=== PATIENT | female | born 1940 | race Caucasian/White ===

== ENCOUNTER 2018-04-11 20:22 | Observation (INO) ==
--- NOTE | 2018-04-11 21:24 | Diag Imaging Result Doc PS360 ---
CHEST-PORTABLE - 04/11/2018 INDICATION: chest pain COMPARISON: 01/14/2015 FINDINGS: The lungs are normally expanded and clear. Heart size and mediastinal contours are normal. No pneumothorax or pleural effusion. Stable left pacemaker in good position. IMPRESSION: Negative exam. Electronically signed by Edwin Woo 04/11/2018 9:21 PM
[2018-04-11 22:04] LABS: BASO# 0.03 X1000 (0.0-0.2); BASO% 0.5 % (0.0-0.8); EOS# 0.23 X1000 (0.0-0.7); EOS% 3.5 % (0.0-10.0); HEMOGLOBIN 13.4 g/dL (12.0-16.0); LYMPH# 1.36 X1000 (1.2-3.4); LYMPH% 20.8 % (20.5-51.1); MCH 30.5 PG (27-31); MCHC 33.5 g/dL (33-37); MCV 91.1 FL (81-99); MONO# 0.59 X1000 (0.11-0.59); MPV 10.9 FL (7.4-10.4); NEUT# 4.34 X1000 (1.4-6.5); NEUT% 66.2 % (42.2-75.2); PLT 181 X1000 (130-400); RBC 4.39 XMIL (4.2-5.4); RDW 12.8 % (11.5-14.5); WBC 6.55 X1000 (4.8-10.8)
[2018-04-11 22:07] LABS: INR 0.97; PROTIME 13.7 Seconds (11.0-16.0)
[2018-04-11 22:08] LABS: PTT 30.5 Seconds (22.3-41.8)
[2018-04-11] MEDS ORDERED: CARDIZEM IV ONE (22:20)
[2018-04-11 22:23] LABS: AGAP 16; ALB/GLOB RATIO 1.6; ALBUMIN 4.2 g/dL (3.5-5.0); ALKALINE PHOSPHATASE 66 U/L (32-104); BUN 15 mg/dL (8-22); CALCIUM 9.6 mg/dL (8.8-10.2); CHLORIDE 99 mmol/L (98-107); CK PROFILE 37 U/L (24-173); COSMO 287; CREATININE 0.9 mg/dL (0.5-0.9); ESTIMATED GFR > 60; GLUCOSE 255 mg/dL (70-104); GOT 20 U/L (10-30); GPT 21 U/L (10-36); MAGNESIUM 1.5 mg/dL (1.5-2.7); SODIUM 139 mmol/L (136-145); TCO2 24 mmol/L (25-35); TOTAL BILIRUBIN 0.99 mg/dL (0.20-1.00); TOTAL PROTEIN 6.8 g/dL (6.3-8.3)
[2018-04-11 22:31] LABS: URINE SOURCE CLEAN CATCH
[2018-04-11 22:49] LABS: BILIRUBIN URINE NEGATIVE (NEGATIVE); BLOOD URINE NEGATIVE (NEGATIVE); COLOR STRAW; GLUCOSE URINE 500 mg/dL (NEGATIVE); KETONE URINE TRACE mg/dL (NEGATIVE); LEUKOCYTES URINE NEGATIVE (NEGATIVE); NITRITE URINE NEGATIVE (NEGATIVE); PROTEIN URINE TRACE mg/dL (NEGATIVE); SP GRAVITY URINE < 1.001; TURBIDITY URINE CLEAR (CLEAR); UR EPITHELIAL CELLS <10 /HPF (<10); URINE BACTERIA NEGATIVE /HPF; URINE RBC <10 /HPF (<10); URINE WBC <10 /HPF (<10); UROBILINOGEN URINE NORMAL (NORMAL)
[2018-04-11] MEDS ORDERED: ASPIRIN PO ONE (23:47)
--- NOTE | 2018-04-12 00:27 | PROVIDER DOCUMENTATION ---
This chart was entered by Melo Wu Scribe, acting as scribe for Paulino Gallardo MD. HPI-Chest Pain - General Chief Complaint: Palpitations Stated Complaint: CHEST PAIN / RACING HEARTRATE / SOB Time Seen by Provider: 04/11/18 20:41 Source: patient Allergies/Adverse Reactions: Patient Allergies Allergy/AdvReac Type Severity Reaction Status Date / Time latex Allergy RASH Verified 04/11/18 23:25 Home Medications: Home Medication List Medication Instructions Recorded Confirmed Last Taken Type Rivaroxaban [Xarelto] 20 mg PO HS 04/21/14 04/11/18 01/13/15 22:00 History Glipizide/Metformin HCl 2 each PO BID 01/14/15 04/11/18 01/21/15 11:30 History [Glipizide-Metformin 5-500 mg] Gabapentin 2 cap PO TID 06/26/17 04/11/18 Unknown History Metoprolol Succinate [Toprol Xl] 1 tab PO DAILY 06/26/17 04/11/18 Unknown History Amlodipine Besylate/Benazepril 1 each PO DAILY 04/11/18 04/11/18 Unknown History [Lotrel 10/20 mg Capsule] - History of Present Illness-CP Nature of Presenting Problem: Pt is a 78 y/o F presents to the ED with chest pain that began at 19:30 after walking up a ramp. Pt says she has had spells like this now for about 1 week. Today the pain was a 10 out of 10. Pt reports taking a nitro at home. Denies taking aspirin. She reports a pain is about an 8 now. Pt report hx of A-Fib. Location: reports: substernal Chest Pain Radiation: reports: arms, neck Quality of Pain: reports: pressure Severity in ED: severe Onset/Duration: this evening Timing: still present, improving Context/Activities at Onset: reports: none Modifying Factors: improves with: nothing Nitro Today/Relief: 0.4 mg x 1, provided at home, mild relief Aspirin Treatment Today: no aspirin today Similar Symptoms Previously?: Yes Recently Seen Here or By Another Healthcare Provider: No Review of Systems - Adult - REVIEW OF SYSTEMS - ADULT Constitutional: denies: chills, fever Eyes: reports: no symptoms reported Ears, Nose, Mouth & Throat: reports: no symptoms reported Cardiovascular: reports: chest pain, palpitations. denies: edema, syncope Respiratory: denies: cough, shortness of breath, wheezing Gastrointestinal: denies: abdominal pain, nausea, vomiting Genitourinary: reports: no symptoms reported Musculoskeletal: denies: back pain, neck pain Integumentary: reports: no symptoms reported Neurological: denies: dizziness/vertigo, headache/migraines Psychiatric: reports: no symptoms reported Endocrine: reports: no symptoms reported Hematologic/Lymphatic: reports: no symptoms reported Allergic/Immunologic: reports: no symptoms reported All Other Systems: Reviewed and Negative Past History - Adult - PAST MEDICAL HISTORY-ADULT Review of Records: reports: Old Records Reviewed, Nursing Assessment Review, Medications Reviewed Cardiovascular: reports: HTN, pacemaker Gastrointestinal: reports: GERD Endocrine/Immune: reports: Diabetes - PRIOR SURGERIES/PROCEDURES Surgical/Procedure History: reports: cholecystectomy, other (tongue cancer) - IMMUNIZATION STATUS Childhood Immunizations: See Nurse Assessment Flu Vaccine: See Nurse Assessment - SOCIAL HISTORY Smoking: non-smoker Substance Use: none/never Living Situation: family Physical Exam-General - PHYSICAL EXAM-ADULT Initial Vital Signs Reviewed: Yes - CONSTITUTIONAL General Appearance: appears well, alert, no apparent distress - EYES Eyes: PERRL/EOMI, pink conjunctivae - HEAD, EARS, NOSE, MOUTH & THROAT HENMT: moist mucous membranes, pharynx normal - NECK Neck: non-tender, full range of motion, supple, normal inspection - RESPIRATORY Respiratory: lungs clear, normal breath sounds, no pleuratic chest pain, no respiratory distress, no accessory muscle use - CARDIOVASCULAR Cardiovascular: normal peripheral pulses, irregularly irregular - GASTROINTESTINAL (ABDOMEN) Abdominal Exam: normal bowel sounds, non tender, soft - MUSCULOSKELETAL Back Exam: normal inspection, no CVA tenderness, no vertebral tenderness Extremity: normal range of motion, non-tender, normal gait, normal inspection, pedal edema (2+ right lower extremity and trace edema left lower extremity) - SKIN Integumentary: normal color, normal turgor, warm/dry - NEUROLOGIC Neurologic: grossly normal, no motor/sensory deficits - PSYCHIATRIC Psych/Mental Status: normal mood/affect, normal thought content, normal thought process, oriented x 3 - HEART Score HEART Score: History: Slightly Suspicious HEART Score: ECG: Non-Specific Repolarization Disturbance/LBBB/PM HEART Score: Age: > or = 65 Years HEART Score: Risk Factors for Atherosclerotic Disease: > or = 3 Risk Factors or History of Atherosclerotic Disease HEART Score: Troponin: < or = Normal Limit Total HEART Score:: 5 Progress - PLAN OF CARE/RESULTS Progress/Plan/Lab Results: Vital Signs - 8 hr 04/11/18 20:34 04/11/18 20:45 04/11/18 20:48 Temperature 97.4 F L Pulse Rate 91 H 87 81 Respiratory Rate 18 18 23 Blood Pressure 205/85 200/108 172/96 O2 Sat by Pulse Oximetry 97 95 95 04/11/18 20:50 04/11/18 21:00 04/11/18 21:02 Temperature Pulse Rate 86 82 84 Respiratory Rate 23 27 H 24 Blood Pressure 163/80 O2 Sat by Pulse Oximetry 95 95 93 L 04/11/18 21:10 04/11/18 21:17 04/11/18 21:20 Temperature Pulse Rate 91 H 78 80 Respiratory Rate 20 24 24 Blood Pressure 164/83 O2 Sat by Pulse Oximetry 94 L 94 L 94 L 04/11/18 21:30 04/11/18 21:32 04/11/18 21:40 Temperature Pulse Rate 80 78 76 Respiratory Rate 30 H 19 27 H Blood Pressure 147/96 O2 Sat by Pulse Oximetry 94 L 94 L 96 04/11/18 21:47 04/11/18 21:50 04/11/18 22:00 Temperature Pulse Rate 83 76 78 Respiratory Rate 25 H 18 20 Blood Pressure 152/79 O2 Sat by Pulse Oximetry 95 93 L 95 04/11/18 22:14 04/11/18 22:16 04/11/18 22:18 Temperature Pulse Rate 94 H 84 81 Respiratory Rate 31 H 23 21 Blood Pressure 220/121 208/86 O2 Sat by Pulse Oximetry 91 L 95 94 L 04/11/18 22:19 04/11/18 22:20 04/11/18 22:30 Temperature Pulse Rate 84 78 77 Respiratory Rate 17 22 21 Blood Pressure 179/86 O2 Sat by Pulse Oximetry 96 95 93 L 04/11/18 22:33 04/11/18 22:40 04/11/18 22:47 Temperature Pulse Rate 83 78 80 Respiratory Rate 21 19 20 Blood Pressure 164/74 173/85 O2 Sat by Pulse Oximetry 92 L 94 L 93 L 04/11/18 22:50 04/11/18 23:00 03/04/19 23:03 Temperature Pulse Rate 70 75 76 Respiratory Rate 19 18 17 Blood Pressure 174/79 O2 Sat by Pulse Oximetry 94 L 93 L 91 L 04/11/18 23:10 04/11/18 23:20 04/11/18 23:25 Temperature Pulse Rate 71 81 74 Respiratory Rate 15 22 20 Blood Pressure 174/79 O2 Sat by Pulse Oximetry 95 94 L 95 04/11/18 23:30 04/11/18 23:40 04/11/18 23:48 Temperature Pulse Rate 75 80 79 Respiratory Rate 15 Blood Pressure 148/65 O2 Sat by Pulse Oximetry 96 95 93 L 04/11/18 23:50 04/12/18 00:00 04/12/18 00:03 Temperature Pulse Rate 81 71 81 Respiratory Rate Blood Pressure 155/72 O2 Sat by Pulse Oximetry 93 L 94 L 96 04/12/18 00:10 04/12/18 00:18 04/12/18 00:20 Temperature Pulse Rate 80 76 74 Respiratory Rate 20 Blood Pressure 185/94 O2 Sat by Pulse Oximetry 93 L 94 L 94 L Laboratory Results - last 24 hr 04/11/18 04/11/18 04/11/18 21:09 21:09 21:09 WBC 6.55 RBC 4.39 Hgb 13.4 Hct 40.0 MCV 91.1 MCH 30.5 MCHC 33.5 RDW Std Deviation 12.8 Plt Count 181 MPV 10.9 H Neut % (Auto) 66.2 Lymph % (Auto) 20.8 [place] % (Auto) 9.0 Eos % (Auto) 3.5 Baso % (Auto) 0.5 Neut # (Auto) 4.34 Lymph # (Auto) 1.36 [place] # (Auto) 0.59 Eos # (Auto) 0.23 Baso # (Auto) 0.03 PT INR PTT (Actin FS) Sodium 139 Potassium 4.0 Chloride 99 Carbon Dioxide 24 L Anion Gap 16 BUN 15 Creatinine 0.9 Estimated GFR/1.73 m2 > 60 BUN/Creatinine Ratio 17 Glucose 255 H Calculated Osmolality 287 Calcium 9.6 Magnesium 1.5 Total Bilirubin 0.99 AST 20 ALT 21 Alkaline Phosphatase 66 Creatine Kinase 37 Troponin T [id number]-Rufxswqgfln Pept 293 Total Protein 6.8 Albumin 4.2 Globulin 2.6 Albumin/Globulin Ratio 1.6 Urine Source Urine Color Urine Turbidity Urine pH Ur Specific [place] Urine Protein Ur Glucose (Stick) Ur Ketones (Stick) Urine Blood Urine Nitrite Urine Bilirubin Urobilinogen Dipstick Urine Leukocytes Urine WBC (Auto) Urine RBC (Auto) U Epithel Cells (Auto) Urine Bacteria (Auto) 04/11/18 04/11/18 04/11/18 21:09 21:09 22:15 WBC RBC Hgb Hct MCV MCH MCHC RDW Std Deviation Plt Count MPV Neut % (Auto) Lymph % (Auto) [place] % (Auto) Eos % (Auto) Baso % (Auto) Neut # (Auto) Lymph # (Auto) [place] # (Auto) Eos # (Auto) Baso # (Auto) PT 13.7 INR 0.97 PTT (Actin FS) 30.5 Sodium Potassium Chloride Carbon Dioxide Anion Gap BUN Creatinine Estimated GFR/1.73 m2 BUN/Creatinine Ratio Glucose Calculated Osmolality Calcium Magnesium Total Bilirubin AST ALT Alkaline Phosphatase Creatine Kinase Troponin T < 0.010 Hol-H-Uhekyuuhyol Pept Total Protein Albumin Globulin Albumin/Globulin Ratio Urine Source CLEAN CATCH Urine Color STRAW Urine Turbidity CLEAR Urine pH 6.0 Ur Specific [place] < 1.001 Urine Protein TRACE A Ur Glucose (Stick) 500 A Ur Ketones (Stick) TRACE A Urine Blood NEGATIVE Urine Nitrite NEGATIVE Urine Bilirubin NEGATIVE Urobilinogen Dipstick NORMAL Urine Leukocytes NEGATIVE Urine WBC (Auto) <10 Urine RBC (Auto) <10 U Epithel Cells (Auto) <10 Urine Bacteria (Auto) NEGATIVE 04/11/18 04/11/18 23:22 23:22 WBC RBC Hgb Hct MCV MCH MCHC RDW Std Deviation Plt Count MPV Neut % (Auto) Lymph % (Auto) [place] % (Auto) Eos % (Auto) Baso % (Auto) Neut # (Auto) Lymph # (Auto) [place] # (Auto) Eos # (Auto) Baso # (Auto) PT INR PTT (Actin FS) Sodium Potassium Chloride Carbon Dioxide Anion Gap BUN Creatinine Estimated GFR/1.73 m2 BUN/Creatinine Ratio Glucose Calculated Osmolality Calcium Magnesium Total Bilirubin AST ALT Alkaline Phosphatase Creatine Kinase 31 Troponin T < 0.010 Fze-Z-Ngppzldlrjm Pept Total Protein Albumin Globulin Albumin/Globulin Ratio Urine Source Urine Color Urine Turbidity Urine pH Ur Specific [place] Urine Protein Ur Glucose (Stick) Ur Ketones (Stick) Urine Blood Urine Nitrite Urine Bilirubin Urobilinogen Dipstick Urine Leukocytes Urine WBC (Auto) Urine RBC (Auto) U Epithel Cells (Auto) Urine Bacteria (Auto) Orders Category Date Time Status CHEST-PORTABLE [RAD] Stat Exams 04/11/18 20:55 Completed CBC WITH ELECTRONIC DIFF [HEME] Stat Lab 04/11/18 21:09 Completed CK PROFILE [SP CHEM] Stat Lab 04/11/18 21:09 Completed CK PROFILE [SP CHEM] Stat Lab 04/11/18 23:22 Completed COMPREHENSIVE METABOLIC PANEL [CHEM] Stat Lab 04/11/18 21:09 Completed MAGNESIUM [CHEM] Stat Lab 04/11/18 21:09 Completed PRO B-NATRIURETIC PEPTIDE Stat Lab 04/11/18 21:09 Completed PT [PROTIME WITH INR] [COAG] Stat Lab 04/11/18 21:09 Completed PTT [COAG] Stat Lab 04/11/18 21:09 Completed TROPONIN T Stat Lab 04/11/18 21:09 Completed TROPONIN T Stat Lab 04/11/18 23:22 Completed URINALYSIS W/POSS RFLX CULT [URINALYSIS] Stat Lab 04/11/18 22:15 Completed Aspirin Med 04/11/18 23:47 Discontinued 325 mg PO NOW ONE Diltiazem [Cardizem] Med 04/11/18 22:20 Discontinued 10 mg IV NOW ONE EKG [EKG] Stat Ther 04/11/18 20:37 Ordered Result Diagrams: 04/11/18 21:09 04/11/18 21:09 - REASSESSMENT Reassessment #1 Time Reassessed: 23:25 Status: other (patient has had moderate chest pain when walking to bathroom after initial improvement) - EKG 1 Time of EKG reading by physician:: 20:31 EKG Read and Signed by:: Paulino Gallardo EKG Interpretation (*Must complete 3 of following elements*): Abnormal Rate: 107 Rhythm: A-Fib with RVR with occasional ventricular pace complexes QRS: other (low voltage QRS) Comments: Septal infarct, age undetermined 2 Time of EKG reading by physician:: 23:18 EKG Read and Signed by:: Paulino Gallardo EKG Interpretation (*Must complete 3 of following elements*): Abnormal Rate: 77 Rhythm: a-fIV [place]: left Comments: SEPTAL INFARCT, ST AND tWAVE ABNORMALITY - XRAY 1 XRAY Study: Chest Impression: Normal (HEST-PORTABLE - 04/11/2018 INDICATION: chest pain COMPARISON: 01/14/2015 FINDINGS: The lungs are normally expanded and clear. Heart size and mediastinal contours are normal. No pneumothorax or pleural effusion. Stable left pacemaker in good position. IMPRESSION: Negative exam. Electronically signed by Edwin Woo 04/11/2018 9:21 PM 04/11/182120 Interpreting Physician: Edwin Woo MD Dictated Date/Time: 04/11/182119 cc: Paulino Gallardo MD; Champ Taylor MD) - CONSULTS/PCP/HOSPITALIST Notification #1 *Consult/PCP/Hospitalist*: Dr. Christy Time Discussed: 23:56 Consult Disposition: Admit Departure - Departure Date of Disposition Decision: 04/11/18 Time of Disposition Decision: 23:57 DIAGNOSIS: Atrial fibrillation with RVR Chest pain Qualifiers: Chest pain type: unspecified Qualified Code(s): R07.9 - Chest pain, unspecified Disposition: ADMITTED INPATIENT 09 Certified Medical Emergency: Emergent Condition: Fair - Critical Care Note This patient required my direct & personal management of CC.: No Attestation - Physician/ LYN Attestation The physician spent face to face time with patient:: Yes Advanced Practice Provider documentation review:: Supervising physician onsite and consulted in the evaluation and care of this patient. The physician did have a face to face encounter with the patient. This chart was documented by the indicated scribe, (Melo Wu Scribe) and accurately reflects the services I performed and decisions made by me, Paulino Gallardo MD, as attested by the provider's signature.
[2018-04-12] MEDS ORDERED: MAGNESIUM SULFATE 1 GM/D5W 1 GM/100 ML IVPB IV ONE (01:07)
[2018-04-12] MEDS ORDERED: ZOFRAN IV PRN (02:01)
[2018-04-12] MEDS ORDERED: MORPHINE IV PRN (02:01)
[2018-04-12] MEDS ORDERED: TYLENOL PO PRN (02:01)
[2018-04-12] MEDS: NITROGLYCERIN TOP SCH ×4 (05:08→20:59)
[2018-04-12] MEDS: HUMALOG SUBQ SCH ×4 (06:33→20:53)
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
--- NOTE | 2018-04-12 07:24 | EKG Report ---
Test Performed on : 04/11/2018 8:31:19 PM Test Reason : CP Blood Pressure : / mmHG Vent. Rate : 107 BPM Atrial Rate : 115 BPM P-R Int : 000 ms QRS Dur : 088 ms QT Int : 344 ms P-R-T Axes : 000 -29 133 degrees QTc Int : 459 ms Atrial fibrillation. with rapid ventricular response. with occasional ventricular-paced complexes Low voltage QRS Septal infarct , age undetermined Abnormal ECG No previous ECGs available Unconfirmed Result
--- NOTE | 2018-04-12 07:49 | EKG Report ---
Test Performed on : 04/11/2018 11:18:12 PM Test Reason : palpitations/chest pain Blood Pressure : / mmHG Vent. Rate : 077 BPM Atrial Rate : 241 BPM P-R Int : 000 ms QRS Dur : 090 ms QT Int : 418 ms P-R-T Axes : 000 -49 -65 degrees QTc Int : 473 ms Atrial fibrillation. Left axis deviation Septal infarct , age undetermined ST & T wave abnormality, consider lateral ischemia Abnormal ECG When compared with ECG of 11-APR-2018 20:31, (Unconfirmed) Atrial fibrillation. has replaced Electronic ventricular pacemaker Unconfirmed Result
[2018-04-12] MEDS ORDERED: LEXISCAN ONE (08:02)
[2018-04-12 08:06] LABS: CHOLESTEROL 165 mg/dL (0-200); HDL 40 mg/dL (45-65); LDL 104 mg/dL; TRIGLYCERIDES 103 mg/dL (35-135); VLDL 21 mg/dL
[2018-04-12 08:23] LABS: HEMOGLOBIN A1C 6.3 % (4.8-6.0)
[2018-04-12] MEDS ORDERED: LOTREL 5/10 MG PO SCH (09:00)
[2018-04-12] MEDS ORDERED: ASPIRIN PO SCH (09:00)
[2018-04-12] MEDS ORDERED: TOPROL XL PO SCH (09:00)
[2018-04-12] MEDS: PRILOSEC PO SCH (10:04)
[2018-04-12] MEDS: LIPITOR PO SCH (10:04)
[2018-04-12] MEDS: NEURONTIN PO SCH ×3 (10:05→20:54)
--- NOTE | 2018-04-12 10:54 | EKG Report ---
Test Performed on : 04/12/2018 10:12:50 AM Test Reason : CP Blood Pressure : / mmHG Vent. Rate : 071 BPM Atrial Rate : 061 BPM P-R Int : 000 ms QRS Dur : 096 ms QT Int : 464 ms P-R-T Axes : 000 -46 -77 degrees QTc Int : 504 ms Atrial fibrillation. with occasional ventricular-paced complexes Left axis deviation ST & T wave abnormality, consider inferolateral ischemia Prolonged QT Abnormal ECG When compared with ECG of 11-APR-2018 23:18, (Unconfirmed) Electronic ventricular pacemaker has replaced Atrial fibrillation. Unconfirmed Result
--- NOTE | 2018-04-12 11:38 | CONSULTATION ---
DATE OF CONSULTATION: 04/12/2018 REASON FOR CONSULTATION: Cardiology was consulted for chest pain. HISTORY OF PRESENT ILLNESS: Ms Romero is a 78-year-old lady with a history of atrial fibrillation, permanent pacemaker - [employer] device, who presented to the emergency room with chest pains she describes as midsternal with radiation to the neck, shoulders and to the back, continued for several hours and she was concerned, came to the emergency room. Denies any nausea, vomiting. Patient also has associated shortness of breath. She again had some recurrence of chest pain earlier since admission, again retrosternal, mild in character. At the time of my examination, patient complains of headache but no chest pain. This morning, she had mild chest discomfort, 3/10. She was set up for a stress test, that was canceled. REVIEW OF SYSTEMS: A 14-point review of systems was done. Gastrointestinal System: There is no history of nausea, vomiting, diarrhea. There is no history of hematemesis or melena. Central nervous system: No focal weakness to suggest a CVA, TIA. Genitourinary: There is no dysuria or hematuria. PAST MEDICAL HISTORY: 1. Atrial fibrillation, Medtronic pacemaker implanted in the past. 2. Hypertension. 3. Diabetes. 4. History of squamous cell carcinoma. 5. Venous insufficiency. 6. Cholecystectomy. 7. Right knee surgery. 8. Carcinoma of tongue removed. 9. Shoulder surgery. 10. Ablation for atrial fibrillation. 11. Cataract surgery. HOME MEDICATIONS: Include: 1. Lotrel 10/. 2. Gabapentin. 3. Glipizide/metformin 5/500 b.i.d. 4. Toprol 25. 5. Xarelto 20 at bedtime. PHYSICAL EXAMINATION: Vital Signs: Blood pressure was 150/70. Cardiovascular System: Normal jugular venous pressure. There is no thyromegaly. There is no carotid bruit. First and second heart sounds were heard. There is no S3, gallop. Respiratory: System normal air entry. There is no crepitations or rhonchi. Abdomen: Soft, nontender. There was no guarding or rigidity. Bowel sounds were heard. Central nervous system: Alert and oriented, moving all 4 extremities. Extremities: Examination of extremities revealed no pedal edema. HEENT: Atraumatic, normocephalic. Pupils were equal and reacting to light. LABORATORY DATA: Cardiac enzymes were negative. Sodium 139, potassium 4.0, BUN 15, creatinine 0.9. platelet count of 181,000. Magnesium 1.5. ProBNP 293. ASSESSMENT AND PLAN: 1. Ms Rose Romero is a 78-year-old lady with history of hypertension, diabetes, atrial fibrillation, permanent pacemaker implantation in the past, comes in with complaints of typical anginal symptoms. she has unstable angina. She was set up for a stress test today that has been cancelled, resting scans revealed inferior , inferoapical, inferoseptal defect. We will plan for invasive coronary angiography. I have discussed with the patient the risks, benefits, alternatives for the plan. We will set up for a left heart catheterization tomorrow. She has taken her Xarelto last night, we need to hold it for at least 24 to 48 hours. 2. Electrocardiogram revealed atrial fibrillation. 3. Magnesium was 1.5. We will repeat the same. 4. As far as medications are concerned, we will increase her Toprol to 50 b.i.d. We will discontinue the Lotrel 11/27, leave her on the TRISTEN inhibitors. Discontinue the amlodipine. 5. Start her on aspirin 81 mg a day. 6. Diabetes. Continue with the glipizide/metformin. 7. Chest x-ray was unremarkable. Thank you for the consult. We will follow hospital course. cc: MD COOPER Barrios
--- NOTE | 2018-04-12 13:45 | PROGRESS NOTE ---
DATE: 04/12/2018 SUBJECTIVE: This morning Ms. Romero referred to be doing fairly okay. Still has this pressure sensation in the chest, but she refers that the chest pain itself has improved some. OBJECTIVE: Vital Signs: Blood pressure 127/74, pulse is 75, respirations 18, temperature is 97.5 degrees. The patient is saturating 100% on room air. General: Ms. Romero is a 78-year-old female, morbidly obese with a BMI of 34.9. She is in bed. No seemingly distress. Mucosa is pink and moist. Anicteric. Acyanotic. Neck: Supple. Chest: Clear to auscultation. No crepitations. No rhonchi. Cardiovascular: Regular rate and rhythm. No murmurs. Abdomen: Soft, distended, but nontender. Bowel sounds present. Extremities: No pedal edema. Central Nervous System: The patient is awake, alert, oriented. There is no focal neurological deficit. DIAGNOSTIC DATA: The laboratory data has been reviewed. Troponins so far have all been negative. EKG on presentation did show a atrial fibrillation, which is rate controlled; left axis deviation; and poor R-wave progression, which would be suggestive of an anterolateral myocardial disease. This patient did have a resting stress test done, which I am told is remarkably abnormal, and because of her history and risk factors, there is an order for a left heart catheterization, hopefully tomorrow. ASSESSMENT AND PLAN: 1. Chest pain with abnormal stress test, as well as EKG, all concerning for coronary artery disease. The patient is pending a left heart catheterization tomorrow. 2. History of atrial fibrillation, currently rate controlled. 3. Diabetes mellitus type 2. 4. Hypertension, controlled. 5. Obesity with body mass index of 34.9. Weight loss has been advised. cc: Eleuterio Chavez MD
--- NOTE | 2018-04-12 14:11 | ECHO REPORT ---
ORDER DATE: 04/12/2018 INDICATION: Pacemaker, chest pain, palpitations. FINDINGS: 1. The right atrium appears normal in size at 3.3 cm. Linear echodensity consistent with device leads is noted in the right heart chambers. 2. Mild tricuspid regurgitation. RV systolic pressure of 37. 3. Normal RV size and systolic function. 4. Mild pulmonic insufficiency. 5. Mild left atrial enlargement with a dimension of 4.8 cm. 6. No mitral valve prolapse. Mild mitral regurgitation. 7. Normal LV size, end-diastolic dimension of 5.4 cm. I believe there is no evidence of left ventricular hypertrophy. The endocardial border thicknesses are difficult to estimate but appear to be around 1 cm for the septum. 8. There is normal LV systolic function. The estimated EF is 60-65% with normal wall motion. 9. Aortic valve opens well. There is mild insufficiency. No stenosis. 10. Aorta appears normal in visualized segments. 11. No pericardial effusion seen. cc: MD Ayana Reese MD
--- NOTE | 2018-04-12 15:17 | Diag Imaging Result Document ---
PROCEDURE NAME: MYOCARDIAL PERFU SCAN, REST - 04/12/2018 INDICATION FOR THIS PROCEDURE: Chest pain. PROCEDURE PERFORMED: Resting myocardial perfusion. PROCEDURE IN DETAIL: Ms. Cabello was brought to the nuclear laboratory in fasting state. Informed consent was obtained. She had a resting study performed with injection of 14.8 mCi of technetium- 99m sestamibi with the usual imaging protocol utilized. FINDINGS: 1. There is no clear evidence of abnormal extracardiac uptake. 2. Rest perfusion imaging seems to demonstrate a mild intensity defect located in a relatively narrow portion in the basal anterior, mid anterior, and apical anterior. There is another defect which is large in size and mild to moderate intensity involving the basal inferior, mid inferior, apical inferior, with some involvement of the inferior septal and inferolateral regions. 3. No gating was performed on this study. 4. Again, these are rest only images. cc: MD Ayana Reese MD
[2018-04-12] MEDS: TOPROL XL PO SCH (20:54)
[2018-04-12] MEDS ORDERED: XARELTO PO SCH (21:00)
[2018-04-13] MEDS: NITROGLYCERIN TOP SCH ×4 (01:48→16:26)
[2018-04-13 05:45] LABS: HEMATOCRIT 38.4 % (37.0-47.0); HEMOGLOBIN 12.8 g/dL (12.0-16.0); MCH 30.7 PG (27-31); MCHC 33.3 g/dL (33-37); MCV 92.1 FL (81-99); MPV 10.9 FL (7.4-10.4); RBC 4.17 XMIL (4.2-5.4); RDW 12.8 % (11.5-14.5); WBC 6.58 X1000 (4.8-10.8)
[2018-04-13] MEDS: HUMALOG SUBQ SCH ×3 (05:59→16:26)
[2018-04-13] MEDS: PRILOSEC PO SCH (06:00)
[2018-04-13 06:02] LABS: AGAP 9; BUN 17 mg/dL (8-22); CALCIUM 9.2 mg/dL (8.8-10.2); CHLORIDE 101 mmol/L (98-107); COSMO 281; CREATININE 0.9 mg/dL (0.5-0.9); ESTIMATED GFR > 60; GLUCOSE 193 mg/dL (70-104); MAGNESIUM 1.8 mg/dL (1.5-2.7); POTASSIUM 4.2 mmol/L (3.5-5.1); SODIUM 137 mmol/L (136-145); TCO2 27 mmol/L (25-35)
[2018-04-13 06:25] LABS: INR 1.11; PROTIME 15.2 Seconds (11.0-16.0)
[2018-04-13] MEDS: NEURONTIN PO SCH ×2 (08:44→16:25)
[2018-04-13] MEDS: TOPROL XL PO SCH (08:44)
[2018-04-13] MEDS: LIPITOR PO SCH (08:44)
[2018-04-13] MEDS ORDERED: PRINIVIL PO SCH (09:00)
[2018-04-13] MEDS ORDERED: ASPIRIN PO SCH (09:00)
[2018-04-13] MEDS ORDERED: HEPARIN 1000 UNITS/NS 2,000 UNIT/1,000 ML IV.SOLN ONE (10:58)
[2018-04-13] MEDS ORDERED: MORPHINE ONE (12:03)
[2018-04-13] MEDS ORDERED: VERSED ONE (12:03)
[2018-04-13] MEDS ORDERED: NS 1,000 ML ONE (12:03)
[2018-04-13] MEDS ORDERED: CLAVE TWINSITE 32 IN 11959 ONE (12:03)
[2018-04-13] MEDS ORDERED: ANESTHESIA PB SET 88 IN 5742 ONE (12:03)
[2018-04-13] MEDS ORDERED: APRESOLINE ONE (13:03)
[2018-04-13] MEDS ORDERED: LABETALOL IV ONE (13:15)
[2018-04-13 16:17] VITALS: BP 130/61
[2018-04-13] MEDS ORDERED: NEURONTIN PO SCH (21:00)
[2018-04-13] MEDS ORDERED: TOPROL XL PO SCH (21:00)
[2018-04-13] MEDS ORDERED: LIPITOR PO SCH (21:00)
[2018-04-14] MEDS ORDERED: PRILOSEC PO SCH (06:00)
[2018-04-14] MEDS ORDERED: PRINIVIL PO SCH (06:00)
[2018-04-14] MEDS ORDERED: ASPIRIN PO SCH (06:00)
--- NOTE | 2018-04-14 06:47 | DISCHARGE SUMMARY ---
ADMISSION DATE: 04/12/2018 DISCHARGE DATE: 04/13/2018 DISPOSITION: [facility] [place]. CONSULTATION DURING THIS ADMISSION: Cardiology was consulted. Patient was seen by Dr. Perry. INVASIVE PROCEDURES DONE DURING THIS ADMISSION: A left heart catheterization was done. At the time of the discharge official report is still not out. However, a preliminary report did show 3 vessel disease. The patient was being transferred for cardiothoracic evaluation. OTHER IMAGING STUDIES: A myocardial perfusion scan was done which showed some reversible ischemic changes on the head. Echocardiogram revealed ejection fraction of about 60% to 65%. DIAGNOSES AT THE TIME OF ADMISSION: 1. Chest pain syndrome etiology unclear, likely ischemic. 2. Atrial fibrillation rate controlled. 3. Diabetes mellitus. 4. Hypertension. DISCHARGE DIAGNOSES: 1. Chest pain secondary to coronary artery disease with left heart catheterization revealing 3 vessel disease. The patient is being transferred to [facility] for higher level of care. 2. History of atrial fibrillation currently rate controlled. 3. Diabetes mellitus type 2. 4. Hypertension. 5. Obesity with BMI of 34.2. PRESENTING COMPLAINT: One week history of chest pain. HISTORY OF PRESENTING COMPLAINT: Ms. Romero is a 78-year-old female with a history of atrial fibrillation, hypertension, diabetes. She is status post pacemaker for what appears to be sick sinus syndrome, who presented to the emergency department because of 1-week history of on and off chest pain. It appears this has been going on and is progressively getting worse. On the day of presentation, patient had a similar episode of retrosternal chest pain with radiation to the left arm associated with some diaphoresis. Upon presentation, patient was evaluated. Initial vitals revealed a blood pressure was 205/85, pulse of 91, respiration was 18. EKG did show atrial fibrillation with RVR. The patient's troponins were within normal range but because of her cardiac risk factors, she was admitted for cardiac risk stratification. HOSPITAL COURSE: Ms. Cabello was admitted to the medical floor under tele monitoring. Blood pressure was controlled. All her other chronic comorbidities where adequately addressed. A stress test as well as echocardiogram were done. The stress test was remarkably positive. It was therefore deemed necessary to do a left heart catheterization which was done by Dr. Sales and it appears to have revealed 3 vessel disease. Cardiology made arrangements for patient to be transferred to [facility] for higher level of care. At the time of discharge, Ms. Romero's vitals were stable. Blood pressure was 130/61, pulse is 83, respiration is 17, temperature 98.2 degrees. I have personally discussed the preliminary finding with the family members at the bedside of Ms. Romero early on today and they were all in agreement for the transfer to take place. Time spent for discharge was 36 minute. cc: MD Champ Thompson MD Ashish K. Basu, MD
== END 2018-04-13 19:30 | disposition short-term general hospital (02) ==
LOC: ED 20:22 → 3N 20:22 → SUATTDRO 04-12 01:34 → 3S 04-12 17:52
PROVIDERS: ATTEND Internal Medicine
CPT/HCPCS: 71010; 71045; 78451; 80048; 80053; 80061; 81001; 82550; 82948; 83036; 83735; 83880; 84484; 85025; 85027; 85610; 85730; 93005; 93306; 93458; 93880; 94761; 99285; A9270; A9500; J0360; J1644; J1815; J2250; J2270; J2785; J3475; J7030; Q9967; XXXXX